=== PATIENT | male | born 1975 | race Native Hawaiian/Other Pacific Islander ===

== ENCOUNTER 2019-07-23 14:41 | Emergency (ER) | payer BC ==
[~2019-07-23] VITALS: Ht 190.5 cm; Wt 113.4 kg
[2019-07-23 14:53] VITALS: BP 143/95; TEMP 97.7
== END 2019-07-23 15:33 | disposition home or self-care (01) ==
LOC: ED 14:41
DX: J11.1 Influenza due to unidentified influenza virus with other respiratory manifestations (principal)
CPT/HCPCS: 87502; 87651; 99283